=== PATIENT | male | born 1980 | race Caucasian/White ===

== ENCOUNTER 2024-10-07 17:31 | Observation (INO) | payer OTHER, SELFPAY ==
[2024-10-07 17:39] VITALS: BP 158/98; PULSE 70; RESP 14; TEMP 36.7; O2SAT 95; BMI 31.7
--- NOTE | 2024-10-07 17:40 | DI.RAD.S_ITS ---
PROCEDURE: XR CLAVICLE LT INDICATIONS: fall,scapula injury TECHNIQUE: 2 views of the clavicle were acquired. COMPARISON: None. FINDINGS: Bones: Displaced midshaft clavicular fracture with overriding of fracture fragments. Left posterior upper rib fractures are present. Soft tissues: No suspicious soft tissue calcifications. IMPRESSION: Displaced midshaft fracture of the left clavicle with overriding of fracture fragments. Mildly displaced left upper rib fractures. Approved by: Jay Alonso M.D. on 10/07/2024 at 18:34
--- NOTE | 2024-10-07 17:40 | DI.RAD.S_ITS ---
PROCEDURE: XR SCAPULA LT INDICATIONS: fall,scapula injury TECHNIQUE: 2 views of the scapula were acquired. COMPARISON: None. FINDINGS: Bones: Displaced midshaft left clavicular fracture. Mildly displaced left posterior 4th and 5th rib fractures. No pneumothorax. Scapular body is intact. No acromial or coracoid fracture is seen. Soft tissues: Overlying soft tissues appear normal. IMPRESSION: 1. No definite scapular fracture. 2. Displaced midshaft fracture of the left clavicle. 3. Mildly displaced left posterior 4th and 5th rib fractures. Approved by: Jay Alonso M.D. on 10/07/2024 at 18:35
--- NOTE | 2024-10-07 17:40 | DI.RAD.S_ITS ---
PROCEDURE: XR SHOULDER LT MIN 2V INDICATIONS: fall,scapula injury TECHNIQUE: 3 views of the shoulder were acquired. COMPARISON: None. FINDINGS: Bones: Displaced midshaft fracture of the left clavicle with overriding of fracture fragments. Mildly displaced left posterior 4th and 5th rib fractures. The scapula and proximal humerus appear to be intact. Soft tissues: No suspicious soft tissue calcifications. IMPRESSION: 1. Displaced left midshaft clavicular fracture. 2. Mildly displaced posterior 4th and 5th rib fractures. Approved by: Jay Alonso M.D. on 10/07/2024 at 18:36
--- NOTE | 2024-10-07 17:40 | DI.RAD.S_ITS ---
PROCEDURE: XR CHEST 1V INDICATIONS: fall,scapula injury TECHNIQUE: One view of the chest was acquired. COMPARISON: None. FINDINGS: Surgical changes and devices: None. Lungs and pleura: Lungs are clear. No pleural effusions or pneumothorax. Mediastinum: Mediastinal contours appear normal. Heart size is normal. Bones and chest wall: Mildly displaced left posterior rib fractures involving at least the 4th and 5th ribs. A displaced clavicular fracture is present. IMPRESSION: Mildly displaced left upper rib fractures and displaced left clavicular fracture. No pneumothorax is seen. Approved by: Jay Alonso M.D. on 10/07/2024 at 18:32
--- NOTE | 2024-10-07 18:18 | DI.CT.S_ITS ---
PROCEDURE: CT CERVICAL SPINE WO CON INDICATIONS: Multiple rib fractures TECHNIQUE: Noncontrast 3 mm thick sections acquired from the skull base to the T4 level. Sagittal and coronal reformats were then constructed. For radiation dose reduction, the following was used: automated exposure control, adjustment of mA and/or kV according to patient size. COMPARISON: None. FINDINGS: Image quality: Excellent. Bones: Displaced midshaft fracture of the left clavicle is partially included. Minimally displaced lateral and posterior left 1st rib segmental fracture. Minimally displaced 3rd and 4th rib fractures are partially included. Visualized superior ribs are intact. Multilevel disc space narrowing and degenerative endplate changes. Multilevel uncovertebral joint and facet hypertrophy. Soft tissues: Prevertebral soft tissues are normal in thickness. No paravertebral hematomas. No apical pneumothoraces. IMPRESSION: 1. No acute cervical spine fracture or traumatic subluxation. 2. Left clavicular and left 1st, 3rd, and 4th rib fractures are present. Approved by: Jay Alonso M.D. on 10/07/2024 at 19:33
--- NOTE | 2024-10-07 18:18 | DI.CT.S_ITS ---
PROCEDURE: CT UE LT WO CON INDICATIONS: Distal clavicle/scapular fracture TECHNIQUE: Noncontrast 0.75 mm thick sections acquired from the acromioclavicular joint to the inferior scapula, with coronal and sagittal reformatting. COMPARISON: [facility], CT, CT CHEST WO CON, 10/07/2024, 18:44. [facility], CT, CT CERVICAL SPINE WO CON, 10/07/2024, 18:44. [facility], CR, XR SHOULDER LT MIN 2V, 10/07/2024, 17:38. FINDINGS: Image quality: Excellent. Bones: Displaced midshaft fracture of the left clavicle with overriding of fracture fragments. Scapula and proximal humerus are intact. Multiple superior rib fractures are present. Soft tissues: Trace left hemothorax. No pneumothorax. Soft tissue edema/hemorrhage is seen adjacent to the fracture. IMPRESSION: 1. Displaced midshaft fracture of the left clavicle. 2. Multiple left-sided rib fractures including segmental fractures. Trace hemothorax. No pneumothorax. Approved by: Jay Alonso M.D. on 10/07/2024 at 20:02
--- NOTE | 2024-10-07 18:18 | DI.CT.S_ITS ---
PROCEDURE: CT CHEST WO CON INDICATIONS: multiple rib fx and clavicle fracture TECHNIQUE: Noncontrast 5 mm thick sections acquired from the pulmonary apices to the posterior costophrenic angles. 1 mm lung window, 5 mm thick coronal and sagittal and 7 mm axial MIP reformats were then acquired. For radiation dose reduction, the following was used: automated exposure control, adjustment of mA and/or kV according to patient size. COMPARISON: [facility], CR, XR SHOULDER LT MIN 2V, 10/07/2024, 17:38. FINDINGS: Image quality: Diagnostic. Lower Neck: No enlarged lymph nodes. Thyroid: No thyroid nodules which require sonographic follow up, per consensus guidelines. Axillae: No enlarged lymph nodes. Chest Wall: Unremarkable. Bones: Displaced midshaft fracture of the left clavicle with posterior displacement of the distal fracture fragment and overriding of fracture fragments. No scapular fracture or left proximal humeral fracture. Multiple left rib fractures. Minimally displaced posterior rib fractures involving the left 1st, likely 2nd, and 3rd through 10th fracture ribs. Anterolateral minimally displaced fractures are seen in the 1st through 5th and possibly 6th rib. No definite left-sided rib fracture. Remaining visualized osseous structures appear intact. Lungs and Pleura: Trace left posterior pleural effusion/hemothorax. No pneumothorax is seen. Left apical pleural-parenchymal scarring. No consolidation or suspicious nodules. Heart: Heart size is normal. No pericardial effusion. Thoracic Vessels: The aorta and pulmonary arteries demonstrate normal size. Mediastinum and Tonia: No enlarged lymph nodes. Esophagus: No wall thickening. No hiatal hernia. Upper Abdomen: Visualized upper abdomen solid organs and bowel loops appear normal. IMPRESSION: 1. Multiple mildly displaced and nondisplaced fractures of the left 1st through 10th ribs, including suspected segmental fractures at the 1st through 6th ribs. This places the patient at risk for flail chest and close clinical correlation is recommended. 2. Trace left hemothorax. No pneumothorax. 3. Displaced left clavicular shaft fracture. Approved by: Jay Alonso M.D. on 10/07/2024 at 19:39
--- NOTE | 2024-10-07 18:21 | ED_ITS ---
HPI - General Adult General Chief complaint: Extremity Injury, Upper Stated complaint: shoulder injury, pain, limited ROM Time Seen by Provider: 10/07/24 17:59 Source: patient Mode of arrival: EMS Limitations: no limitations History of Present Illness HPI narrative: Patient is a 44-year-old male. Not on anticoagulation who is here for evaluation of injuries that he sustained when he was skateboarding and landed on his left side/left shoulder. He did not hit his head. No loss of consciousness. No neck pain. Sustained an injury to his left shoulder and left upper back. He arrived by EMS. He did have a sling in place. Received pain medicine by EMS prior to arrival. Reports no elbow pain or wrist pain on the left. No right upper extremity discomfort. No abdominal pain. No chest pain. No lower extremity discomfort. Related Data Home Medications Medication Instructions Recorded Confirmed No Known Home Medications 10/07/24 10/07/24 Allergies Allergy/AdvReac Type Severity Reaction Status Date / Time No Known Drug Allergies Allergy Verified 10/07/24 20:06 Review of Systems Review of Systems ROS Unobtainable: All systems reviewed & are unremarkable except as noted in HPI and below Patient History Social History household members: spouse Smoking Status: Current every day smoker alcohol intake: current Smoking Status: Current every day smoker tobacco type: vaping Alcohol type: wine Exam Initial Vital Signs Initial Vital Signs: Vital Signs Temperature 98.0 F 10/07/24 17:39 Pulse Rate 70 10/07/24 17:39 Respiratory Rate 14 10/07/24 17:39 Blood Pressure 158/98 H 10/07/24 17:39 Pulse Oximetry 95 10/07/24 17:39 Oxygen Delivery Method Room Air 10/07/24 17:39 Const General: cooperative and No ill appearing HENMT Head: normal to inspection and normocephalic Face and sinus: normal facial exam Resp Effort & Inspection: normal respiratory effort Auscultation: clear to auscultation bilaterally Cardio Rate: regular rate Rhythm: regular rhythm Pulses: radial pulses present on the left GI Inspection: normal to inspection Back/Spine/Pelvis Cervical Spine: No cervical spinal tenderness Thoracic/Lumbar Spine: No thoracic spinal tenderness and No lumbar spinal tenderness Skin General: no rashes or lesions noted Neuro Cognition: normal cognition Speech: speech normal Sensory Exam: no sensory deficits noted Extrem Other: Right upper extremity, bilateral lower extremities and pelvis are unremarkable. Left upper extremity has no range of motion to his left shoulder secondary to pain. His left elbow left wrist unremarkable. Scores GCS [place] coma scale eye opening: Spontaneous [place] coma scale verbal response: Orientated [place] coma scale motor response: Obey commands [place] coma scale total score: 15 Course Orders Ordered: ED Orders 10/07/24 17:40 XR chest 1V Stat XR clavicle LT Stat XR scapula LT Stat XR shoulder LT min 2V Stat 10/07/24 18:18 CT UE LT wo con Stat CT cervical spine wo con Stat CT chest wo con Stat 10/07/24 19:58 Consult to General Surgery Stat 10/07/24 20:04 Consult to Orthopedic Surgery Stat Acetaminophen (Acetaminophen 325 Mg Tablet) 650 mg PO Q6H [facility] Last Admin: 10/07/24 21:48 Dose: 650 mg Documented By: NICOL Al Hydrox/Mg Hydrox/Simethicone (Mag Hydrox/Alum/Simeth 30 Ml Udc) 30 ml PO Q6HR PRN PRN Reason: Dyspepsia Celecoxib (Celecoxib 200 Mg Capsule) 200 mg PO BID [facility] Last Admin: 10/07/24 21:47 Dose: 200 mg Documented By: NICOL Docusate Sodium (Docusate 100 Mg Capsule) 100 mg PO BID [facility] Last Admin: 10/07/24 21:47 Dose: 100 mg Documented By: NICOL Hydromorphone HCl (Hydromorphone 0.5 Mg Inj) 0.5 mg IV Q2H PRN PRN Reason: Pain, Severe (7-10) Influenza Virus Vaccine (Influenza Vaccine Qiv 0.5 Ml Syringe) 0.5 ml IM .ONCE ONE Stop: 10/08/24 06:01 Lidocaine (Lidocaine 5% Patch) 1 each TOP DAILY [facility] Magnesium Hydroxide (Magnesium Hydroxide 30 Ml Udc) 30 ml PO DAILY [facility] Naloxone HCl (Naloxone 0.4 Mg/Ml Vial) 0.2 mg IV Q2MIN PRN PRN Reason: Opiate Reversal Ondansetron HCl (Ondansetron 4 Mg Odt) 4 mg PO Q8HR PRN PRN Reason: Nausea And Vomiting Oxycodone HCl (Oxycodone Ir 5 Mg Tablet) 5 mg PO Q3H PRN PRN Reason: Pain, Moderate (4-6) Oxycodone HCl (Oxycodone Ir 10 Mg Tablet) 10 mg PO Q3H PRN PRN Reason: Pain, Severe (7-10) Last Admin: 10/08/24 00:58 Dose: 10 mg Documented By: Admin: 10/07/24 21:47 Dose: 10 mg Documented By: JOSHK Tizanidine HCl (Tizanidine 4 Mg Tablet) 4 mg PO Q8HR [facility] Last Admin: 10/07/24 21:47 Dose: 4 mg Documented By: JOSHK Discontinued Medications Hydromorphone HCl (Hydromorphone 1 Mg Inj) 1 mg IV NOW ONE Stop: 10/07/24 18:22 Last Admin: 10/07/24 18:32 Dose: 1 mg Documented By: BJ Hydromorphone HCl (Hydromorphone 1 Mg Inj) 1 mg IV NOW ONE Stop: 10/07/24 19:55 Last Admin: 10/07/24 20:02 Dose: 1 mg Documented By: HNG Vital Signs Vital signs: Vital Signs - 8 hr 10/07/24 19:15 Pulse Rate 79 Blood Pressure 138/88 Pulse Oximetry 97 Oxygen Delivery Method Room Air Medical Decision Making Imaging Data Chest x-ray: Radiologist's Impression: PROCEDURE: XR CHEST 1V INDICATIONS: fall,scapula injury TECHNIQUE: One view of the chest was acquired. COMPARISON: None. FINDINGS: Surgical changes and devices: None. Lungs and pleura: Lungs are clear. No pleural effusions or pneumothorax. Mediastinum: Mediastinal contours appear normal. Heart size is normal. Bones and chest wall: Mildly displaced left posterior rib fractures involving at least the 4th and 5th ribs. A displaced clavicular fracture is present. IMPRESSION: Mildly displaced left upper rib fractures and displaced left clavicular fracture. No pneumothorax is seen. Clavicle x-ray: Radiologist's Impression: PROCEDURE: XR CLAVICLE LT INDICATIONS: fall,scapula injury TECHNIQUE: 2 views of the clavicle were acquired. COMPARISON: None. FINDINGS: Bones: Displaced midshaft clavicular fracture with overriding of fracture fragments. Left posterior upper rib fractures are present. Soft tissues: No suspicious soft tissue calcifications. IMPRESSION: Displaced midshaft fracture of the left clavicle with overriding of fracture fragments. Mildly displaced left upper rib fractures. Scapula x-ray: Radiologist's Impression: PROCEDURE: XR SCAPULA LT INDICATIONS: fall,scapula injury TECHNIQUE: 2 views of the scapula were acquired. COMPARISON: None. FINDINGS: Bones: Displaced midshaft left clavicular fracture. Mildly displaced left posterior 4th and 5th rib fractures. No pneumothorax. Scapular body is intact. No acromial or coracoid fracture is seen. Soft tissues: Overlying soft tissues appear normal. IMPRESSION: 1. No definite scapular fracture. 2. Displaced midshaft fracture of the left clavicle. 3. Mildly displaced left posterior 4th and 5th rib fractures. Shoulder x-ray: Radiologist's Impression: PROCEDURE: XR SHOULDER LT MIN 2V INDICATIONS: fall,scapula injury TECHNIQUE: 3 views of the shoulder were acquired. COMPARISON: None. FINDINGS: Bones: Displaced midshaft fracture of the left clavicle with overriding of fracture fragments. Mildly displaced left posterior 4th and 5th rib fractures. The scapula and proximal humerus appear to be intact. Soft tissues: No suspicious soft tissue calcifications. IMPRESSION: 1. Displaced left midshaft clavicular fracture. 2. Mildly displaced posterior 4th and 5th rib fractures. CT - cervical spine: Radiologist's Impression: PROCEDURE: CT CERVICAL SPINE WO CON INDICATIONS: Multiple rib fractures TECHNIQUE: Noncontrast 3 mm thick sections acquired from the skull base to the T4 level. Sagittal and coronal reformats were then constructed. For radiation dose reduction, the following was used: automated exposure control, adjustment of mA and/or kV according to patient size. COMPARISON: None. FINDINGS: Image quality: Excellent. Bones: Displaced midshaft fracture of the left clavicle is partially included. Minimally displaced lateral and posterior left 1st rib segmental fracture. Minimally displaced 3rd and 4th rib fractures are partially included. Visualized superior ribs are intact. Multilevel disc space narrowing and degenerative endplate changes. Multilevel uncovertebral joint and facet hypertrophy. Soft tissues: Prevertebral soft tissues are normal in thickness. No paravertebral hematomas. No apical pneumothoraces. IMPRESSION: 1. No acute cervical spine fracture or traumatic subluxation. 2. Left clavicular and left 1st, 3rd, and 4th rib fractures are present. CT scan - chest: Radiologist's Impression: PROCEDURE: CT CHEST WO CON INDICATIONS: multiple rib fx and clavicle fracture TECHNIQUE: Noncontrast 5 mm thick sections acquired from the pulmonary apices to the posterior costophrenic angles. 1 mm lung window, 5 mm thick coronal and sagittal and 7 mm axial MIP reformats were then acquired. For radiation dose reduction, the following was used: automated exposure control, adjustment of mA and/or kV according to patient size. COMPARISON: [facility], CR, XR SHOULDER LT MIN 2V, 10/07/2024, 17:38. FINDINGS: Image quality: Diagnostic. Lower Neck: No enlarged lymph nodes. Thyroid: No thyroid nodules which require sonographic follow up, per consensus guidelines. Axillae: No enlarged lymph nodes. Chest Wall: Unremarkable. Bones: Displaced midshaft fracture of the left clavicle with posterior displacement of the distal fracture fragment and overriding of fracture fragments. No scapular fracture or left proximal humeral fracture. Multiple left rib fractures. Minimally displaced posterior rib fractures involving the left 1st, likely 2nd, and 3rd through 10th fracture ribs. Anterolateral minimally displaced fractures are seen in the 1st through 5th and possibly 6th rib. No definite left-sided rib fracture. Remaining visualized osseous structures appear intact. Lungs and Pleura: Trace left posterior pleural effusion/hemothorax. No pneumothorax is seen. Left apical pleural-parenchymal scarring. No consolidation or suspicious nodules. Heart: Heart size is normal. No pericardial effusion. Thoracic Vessels: The aorta and pulmonary arteries demonstrate normal size. Mediastinum and Tonia: No enlarged lymph nodes. Esophagus: No wall thickening. No hiatal hernia. Upper Abdomen: Visualized upper abdomen solid organs and bowel loops appear normal. IMPRESSION: 1. Multiple mildly displaced and nondisplaced fractures of the left 1st through 10th ribs, including suspected segmental fractures at the 1st through 6th ribs. This places the patient at risk for flail chest and close clinical correlation is recommended. 2. Trace left hemothorax. No pneumothorax. 3. Displaced left clavicular shaft fracture. CT shoulder: Radiologist's Impression: ROCEDURE: CT UE LT WO CON INDICATIONS: Distal clavicle/scapular fracture TECHNIQUE: Noncontrast 0.75 mm thick sections acquired from the acromioclavicular joint to the inferior scapula, with coronal and sagittal reformatting. COMPARISON: [facility], CT, CT CHEST WO CON, 10/07/2024, 18:44. [facility], CT, CT CERVICAL SPINE WO CON, 10/07/2024, 18:44. [facility], CR, XR SHOULDER LT MIN 2V, 10/07/2024, 17:38. FINDINGS: Image quality: Excellent. Bones: Displaced midshaft fracture of the left clavicle with overriding of fracture fragments. Scapula and proximal humerus are intact. Multiple superior rib fractures are present. Soft tissues: Trace left hemothorax. No pneumothorax. Soft tissue edema/hemorrhage is seen adjacent to the fracture. IMPRESSION: 1. Displaced midshaft fracture of the left clavicle. 2. Multiple left-sided rib fractures including segmental fractures. Trace hemothorax. No pneumothorax. MDM Narrative Medical decision making narrative: Patient was multiple rib fractures of the left with a small hemothorax. He was not hypoxic. Lungs are clear. Will hold on chest tube for now. Cervical spine CT is unremarkable. He did not hit his head it was not on anticoagulation and has no loss of consciousness. Has a GCS of 15 alert and oriented x3. We will hold on a head CT for now. Has a left clavicular fracture. I did discuss the case with Dr. Nagel on-call for General surgery who will admit for observation. Discussed the case with Dr. Conrad on-call for Orthopedic surgery who will evaluate the patient as an inpatient most likely tomorrow. Discussed the need for admission with the patient. He expressed understanding agreement with plan. Discharge Plan Departure Patient Disposition: Admitted as Observation Clinical Impression: Multiple rib fractures involving first rib, Hemothorax on left Fracture, clavicle Qualifiers: Encounter type: initial encounter Laterality: left Admit Date/Time: 10/07/24 20:05 Admit Provider: Jass Nagel
[2024-10-07] MEDS: HYDROMORPHONE 1 MG INJ IV ×2 (18:32→20:02)
[2024-10-07 19:15] VITALS: BP 138/88; PULSE 79; O2SAT 97
--- NOTE | 2024-10-07 20:31 | PM.HP.1 ---
History of Present Illness History of Present Illness Date Patient Seen: 10/07/24 Time Patient Seen: 20:31 Chief complaint: shoulder injury, pain, limited ROM Narrative: This is a 44-year-old white male who fell off the curb while skateboarding earlier today. He did not strike his head. He did not have loss of consciousness. He struck his left shoulder and chest wall and sustained a clavicle fracture as well as 1st through 10th rib fractures. He has a small hemothorax without associated pneumothorax. He is otherwise healthy. He has had a previous right clavicle fracture and previous rib fractures years prior. [facility] Social History Smoking Status: Current every day smoker Meds Home Medications and Allergies Allergies Allergy/AdvReac Type Severity Reaction Status Date / Time No Known Drug Allergies Allergy Verified 10/07/24 20:06 Review of Systems Review of Systems ROS: Yes All systems reviewed with the patient and are negative except as otherwise documented Exam Vital Signs (past 8 hours): - 10/07/24 17:39 10/07/24 19:15 Temperature 98.0 F Pulse Rate 70 79 Respiratory Rate 14 Blood Pressure 158/98 H 138/88 Pulse Oximetry 95 97 Oxygen Delivery Method Room Air Room Air Oxygen Delivery Method Room Air Const General: cooperative, healthy appearing, comfortable, well developed and well groomed Nutritional Appearance: average body habitus and well nourished Orientation: alert, awake and oriented x3 HENMT Head: normal to inspection, normocephalic, atraumatic, No abrasion, No Olvera's sign, No contusion, No hematoma and No laceration Eyes General: appearance normal, both eyes and all related structures Alignment and Position: alignment normal Periorbital: periorbital findings normal Pupils: PERRL Neck Neck: normal visual inspection, full ROM, trachea midline, No anterior neck swelling, No midline deformity, No tender and No tracheal deviation Chest Chest: localized rib tenderness with anteroposterior compression Resp Effort & Inspection: normal respiratory effort and able to speak in complete sentences Auscultation: clear to auscultation bilaterally Cardio Rate: regular rate Rhythm: regular rhythm GI Inspection: no abdominal wall ecchymosis and no edema Palpation: soft, No guarding and No tender Back/Spine/Pelvis Back: normal to inspection Cervical Spine: normal cervical lordosis Thoracic/Lumbar Spine: thoracic and lumbar spine normal to inspection Skin Trauma: no lacerations or abrasions Wounds: no wounds Neuro Cranial Nerves: CN's II-XI intact bilaterally Cognition: normal cognition Speech: speech normal Gait: normal gait Motor: muscle tone normal throughout Sensory Exam: no sensory deficits noted Extrem Right upper extremity: normal to inspection Left upper extremity: ROM limited Right lower extremity: normal to inspection Left lower extremity: normal to inspection Psych Appearance: grossly normal and well kempt Mental Status: mental status grossly normal Speech and Movement: speech and movement normal Mood: congruent mood Affect: normal affect Attitude: cooperative Thought Process: normal Thought Content: normal Judgment: judgment good Objective Imaging CT scan - chest: My impression: CT scan chest independently reviewed by me demonstrates 1st through 10 rib fractures on the left as well as a comminuted left clavicle fracture. Small hemothorax without associated pneumothorax. Assessment & Plan Assessment and plan (1) Hemothorax on left: Status: Acute (2) Fracture, clavicle: Qualifiers: Encounter type: initial encounter Laterality: left Status: Acute (3) Multiple rib fractures involving first rib: Status: Acute Assessment & Plan narrative: 1. Orthopedic surgery to evaluate the clavicle tomorrow 2. Discussed with the patient the importance of incentive spirometry to recruit lung volume. Explained to the patient that a hemothorax we will take away lung volume and if it expands he will never get that lung volume back. We discussed goals of pain control is for him to be able to pull a good volume on incentive spirometry and regain function. We will keep him overnight with as needed IV medications. If he is able to tolerate oral medications and oral as needed, and the orthopedic consultation is resolved tomorrow, he could feasibly be discharged tomorrow. Time-Based Coding :: [TOTAL MINUTES] spent with patient and on the chart (including review of chart, obtaining history, exam, reviewing outside data, placing orders, documenting exam and treatment plan, and counseling patient) on [DATE]. PROFEE Charge Codes Initial inpatient/observation care: 73550
[2024-10-07 20:52] VITALS: BP 147/84; PULSE 76; RESP 16; O2SAT 97
[2024-10-07 21:22] VITALS: BMI 22.5
[2024-10-07] MEDS: TIZANIDINE 4 MG TABLET PO (21:47)
[2024-10-07] MEDS: CELECOXIB 200 MG CAPSULE PO (21:47)
[2024-10-07] MEDS: OXYCODONE IR 10 MG TABLET PO (21:47)
[2024-10-07] MEDS: DOCUSATE 100 MG CAPSULE PO (21:47)
[2024-10-07] MEDS: ACETAMINOPHEN 325 MG TABLET 650 MG PO (21:48)
[2024-10-07 22:09] VITALS: BP 138/91; PULSE 66; RESP 18; TEMP 36.6; O2SAT 94
[2024-10-08 00:23] VITALS: O2SAT 95
[2024-10-08] MEDS: OXYCODONE IR 10 MG TABLET PO ×3 (00:58→15:21)
[2024-10-08] MEDS: TIZANIDINE 4 MG TABLET PO ×2 (05:05→13:34)
[2024-10-08 06:00] VITALS: BP 127/84; PULSE 86; RESP 19; TEMP 36.6; O2SAT 97
--- NOTE | 2024-10-08 06:00 | DI.RAD.S_ITS ---
PROCEDURE: XR CHEST 2V INDICATIONS: re-assess hemothorax TECHNIQUE: 2 views of the chest were acquired. COMPARISON: [facility], , XR CHEST 1V, 10/07/2024, 17:38. FINDINGS: Surgical changes and devices: None. Lungs and pleura: Small blunting of the left costophrenic angle, consistent with history of hemothorax. Left apical pleural thickening. No definite pneumothorax is seen. Mediastinum: Mediastinal contours are normal. Heart size is normal. Bones and chest wall: Redemonstration of left rib fractures. Clavicle fracture is redemonstrated. No suspicious bony abnormalities. Soft tissues appear unremarkable. IMPRESSION: Blunting of the left costophrenic angle likely representing small hemothorax. Redemonstration of rib and clavicle fractures. No definite pneumothorax is seen. Dictated by: Betito Schumacher M.D. on 10/08/2024 at 11:24 Approved by: Betito Schumacher M.D. on 10/08/2024 at 11:26
[2024-10-08 07:55] VITALS: O2SAT 97
[2024-10-08 07:58] VITALS: BP 125/85; PULSE 56; RESP 14; TEMP 36.3; O2SAT 98
[2024-10-08] MEDS: ACETAMINOPHEN 325 MG TABLET 650 MG PO ×2 (08:17→13:34)
[2024-10-08] MEDS: LIDOCAINE 5% PATCH 1 EACH TOP (08:17)
[2024-10-08] MEDS: MAGNESIUM HYDROXIDE 30 ML UDC PO (08:17)
[2024-10-08] MEDS: CELECOXIB 200 MG CAPSULE PO (08:19)
[2024-10-08] MEDS: OXYCODONE IR 5 MG TABLET PO ×2 (08:19→11:35)
[2024-10-08] MEDS: DOCUSATE 100 MG CAPSULE PO (08:19)
[2024-10-08 10:57] VITALS: O2SAT 97
[2024-10-08 11:00] VITALS: BP 137/90; PULSE 67; RESP 16; TEMP 36.9; O2SAT 97
--- NOTE | 2024-10-08 12:39 | CM.DANOTE ---
DCP Assessment Note: Pt is a 44yo male, resident of [place], is admitted for hemothorax and clavicle injury following a skateboarding accident. Pt lives in a house with his and two children. Pt does not have a current PCP at this time and insurance is [employer]. Reviewed chart and team rounds for pt's medical status and initial discharge needs. DCP met w/patient at bedside; introduced self and role. Patient was found in bed, alert and oriented, cooperative with assessment. Pt confirmed living situation and good support in and family. Pt expressed preference in discharging home when medically cleared. Pt declined need for home health or other community referrals at this time. Pt requested assistance with priority boarding pass and confirmed he is not able to get ferry reservation due to unknown discharge time. Pt confirmed email address as: [email or web address]. DCP will complete form when dc order for today confirmed. PT evaluation pending. Plan: Anticipating dc home with spouse when medically cleared. CM team will follow closely for coordination of discharge plans. 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 No History Provided By Patient,Medical Record Has Patient been admitted in last 30 No days? Prior Living Arrangements House Comment [place] Household Members spouse,children Comment Son (16yo), Daughter (10yo) Type of transporation used prior to Drives own vehicle admit Independent with ADL's Yes Is patient alert and oriented? Yes Caregiver for Another No Barriers to Discharge No Discharge Plan Home Whiteboard Updated in Patient Room with Yes name and ext. # of Roller Printer Comment [phone] Review Status In Process Please Provide Date Initial DC 10/08/24 Assessment Was Performed Next Review Type Continued Stay Review
--- NOTE | 2024-10-08 13:10 | PT.IIE ---
Current Diagnoses Hemothorax (10/07/24) Multiple fractures of ribs, unspecified side, initial encounter for closed fracture (10/07/24) Fracture of unspecified part of unspecified clavicle, initial encounter for closed fracture (10/07/24) Physical Therapy Inpatient Evaluation/Re-Eval M1 PT/OT-IP Prior Functional Status Start: 10/08/24 12:52 Freq: NEEDED Status: Active Protocol: Document 10/08/24 12:53 AMB (Rec: 10/08/24 13:09 AMB [id number]) Medical Review Prior Functional Status Communication Independent Mobility and Gait Independent Activities of Daily Living and IADL's Independent Social History Household Members spouse,children Living Arrangements House Number of Stairs To Enter/Railing? 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 M2 PT-IP Current Condition Start: 10/08/24 12:52 Freq: NEEDED Status: Active Protocol: Document 10/08/24 12:53 AMB (Rec: 10/08/24 13:09 AMB [id number]) Physical Therapy Current Condition Current Condition Evaluation Date 10/08/24 Treatment Diagnosis clavicular and rib fractures s /p fall Onset Date 10/08/24 M3 PT-IP Subjective Start: 10/08/24 12:52 Freq: NEEDED Status: Active Protocol: Document 10/08/24 12:53 AMB (Rec: 10/08/24 13:09 AMB [id number]) Subjective Physical Therapy Visit Type Type Initial Evaluation Visit Start Time 12:30 Visit Stop Time 12:45 Physical Therapy Visit Comments Patient Comments Pt is ready and willing to get up, just got pain meds, so pain is under control Therapy Pain Assessment Pain When Pain Assessed At Rest Pain Present Pain Present Pain Reported M4 PT-IP Mobility and Gait Start: 10/08/24 12:52 Freq: NEEDED Status: Active Protocol: Document 10/08/24 12:53 AMB (Rec: 10/08/24 13:09 AMB [id number]) PT-Bed Mobility Assessment Rolling Type of Rolling Roll to Right Level of Assist Independent Supine to Sit Supine to Sit Independent Sit to Supine Sit to Supine Independent PT-Transfer Assessment Sit to and From Stand Sit to and from Stand Independent Equipment Transfer Assistive Device None Transfers Transfer Destination Bed,Chair Transfer Technique Stand Step Pivot Transfer Ability Level of Assist Independent Comments Mobility Comments Pt independently performing bed mobility and transfers Gait Assessment Gait Gait Assistance Required: Independent Distance (Feet) 300 Assistive Devices Assistive Device None Gait Deviations General Gait Pattern Within Normal Limits Comments Gait Comments Pt is independent with gait over smooth terrain, states feels good to walk around. Very active prior to fall. Stair Climbing Assessment Evaluation Level of Assist On Stairs Independent Devices Stair Climbing Assistive Devices None Technique/Endurance Stair Climbing Direction Ascend and Descend Stair Climbing Technique Step to Step Number of Steps Climbed 4 Query Text: Comments Stair Climbing Comments Pt encouraged to take his time on stairs, but was able to practice stairs without railing. PT-Balance Assessment Balance Tests Tandem Standing 30 seconds M5 PT-IP Objective Assessments Start: 10/08/24 12:52 Freq: NEEDED Status: Active Protocol: Document 10/08/24 12:53 AMB (Rec: 10/08/24 13:09 AMB [id number]) Orientation Orientation/Cognition Level of Alertness Alert Gross Range of Motion Upper Extremity ROM Assessment Left Impaired Impairments in sling s/p clavicular fracture Lower Extremity ROM Assessment Within Functional Limits Strength Upper Extremity Strength Assessment Left Impaired Lower Extremity Strength Assessment Within Functional Limits M6 PT-IP Treatment Start: 10/08/24 12:52 Freq: NEEDED Status: Active Protocol: Document 10/08/24 12:53 AMB (Rec: 10/08/24 13:09 AMB [id number]) Physical Therapy Treatment Education Education Provided Safety M7 PT-IP Assessment and Plan Start: 10/08/24 12:52 Freq: NEEDED Status: Active Protocol: Document 10/08/24 12:53 AMB (Rec: 10/08/24 13:09 AMB [id number]) PT Summary Assessment and Plan Potential Rehabilitation Potential Excellent Status of Condition at Evaluation Stable Summary Impairments Pain,Activity Tolerance Assessment Summary Jostin sustained a L clavicular and multiple L rib fractures after falling while skateboarding. 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 Upon PT evaluation he is independent with transfers, gait, and stairs. Encouraged patient to be careful upon getting up as he is on pain medication that is new to him, and encouraged him to be very careful to avoid falling. Overall he was able to navigate the hospital environment independently and should be able to discharge home when medically stable. Goals Bed Mobility Goal Independent Transfer Goal Independent Gait Goal Independent Days to Meet Goals 1 Frequency of Treatment Frequency Of Treatment Discharge Treatment Plan Physical Therapy Treatment Plan Gait Training,Balance Retraining Recommendations To Nursing Amount of Assist Needed Independent Discharge Recommendations PT Discharge Recommendations Home Transportation Needs at Discharge Private Vehicle
--- NOTE | 2024-10-08 13:15 | PM.DS.1 ---
History of Present Illness History of Present Illness Chief complaint: shoulder injury, pain, limited ROM Narrative: This is a 44-year-old white male who fell off the curb while skateboarding earlier today. He did not strike his head. He did not have loss of consciousness. He struck his left shoulder and chest wall and sustained a clavicle fracture as well as 1st through 10th rib fractures. He has a small hemothorax without associated pneumothorax. He is otherwise healthy. He has had a previous right clavicle fracture and previous rib fractures years prior. Discharge Providers Provider Date of admission: 10/07/24 20:05 Discharge Date: 10/08/24 Primary care physician: Doctor Abram MD Consults: 10/07/24 19:58 Consult to General Surgery Stat Comment: Consulting Provider: Jass Nagel Reason for consultation: multiple rib fractures Has provider been notified: Yes 10/07/24 20:04 Consult to Orthopedic Surgery Stat Comment: Consulting Provider: Christo Conrad Reason for consultation: Clavicle fracture Has provider been notified: Yes 10/07/24 20:27 Consult to Physical Therapy Evaluate & Treat Comment: Physician Instructions: Evaluate and Treat Consult to Physician Routine Comment: Consulting Provider: Christo Conrad Reason for consultation: clavicle fracture, already called by the ER Has provider been notified: Yes Discharge provider: Jass Nagel MD Summary Hospital Course Discharge Diagnosis: 1. Multiple left rib fracture with hemothorax 2. Left clavicle fracture Hospital Course: Patient was admitted for pain control and monitoring following a fall from his skateboard resulting multiple left rib fractures, hemothorax left clavicle fracture. Patient only required IV Dilaudid in the ER, has been tolerating oral medications. Orthopedic surgeries not have plans for inpatient treatment of the clavicle fracture. Status at Discharge Cognitive/behavioral status at discharge: oriented Functional status at discharge: independent ambulation Overall status at discharge: patient is back to baseline Time Spent with Patient Time spent: Less than 30 minutes Exam Vital Signs (past 8 hours): - 10/08/24 06:00 10/08/24 07:55 10/08/24 07:55 Temperature 97.8 F Pulse Rate 86 Respiratory Rate 19 Blood Pressure 127/84 Pulse Oximetry 97 97 Oxygen Delivery Method Room Air Room Air Oxygen Flow Rate 0 0 10/08/24 07:58 10/08/24 10:57 10/08/24 11:00 Temperature 97.4 F L 98.5 F Pulse Rate 56 L 67 Respiratory Rate 14 16 Blood Pressure 125/85 137/90 Pulse Oximetry 98 97 97 Oxygen Delivery Method Room Air Oxygen Flow Rate 0 0 0 Oxygen Delivery Method Room Air Oxygen Flow Rate 0 Narrative Exam Narrative: Gen: NAD, sitting comfortably in bed, appears well HEENT: Sclera are anicteric, head is normocephalic and atraumatic, trachea is midline. CV: RRR, no JVD Resp: clear to auscultation bilaterally, equal chest wall movement bilaterally Abd: soft, nontender, normoactive bowel sounds Ext: no edema, full range of motion x3, left arm in sling Neuro: Cranial nerves II-XII grossly intact, no focal deficits Skin: No erythema or ecchymosis PFSH Social History household members: spouse and children Smoking Status: Current every day smoker alcohol intake: current Discharge Assessment & Plan Assessment and Plan Assessment: 1. Multiple left rib fractures, 2. Hemothorax 3. clavicle fracture Plan of Treatment: Sling. Outpatient follow-up with Orthopedic surgery Pain management with oral medications Discharge Plan Discharge Plan Patient Disposition: Home Discharge orders & Medications Prescriptions: New oxycodone 5 mg Tablet 5 mg PO Q3H PRN (Reason: Pain, Moderate (4-6)) 7 Days Qty: 20 0RF acetaminophen 325 mg Tablet 650 mg PO Q6H 30 Days Qty: 240 2RF celecoxib [Celebrex] 200 mg Capsule 200 mg PO BID 30 Days Qty: 60 2RF tizanidine 4 mg Tablet 4 mg PO Q8HR 30 Days Qty: 90 2RF lidocaine 5 % Adhesive Patch,Medicated 1 patch topical BEDTIME 30 Days Qty: 30 2RF No Action No Known Home Medications Follow up/Referrals: Miscellaneous,DoctorMD [Primary Care Provider] - Christo Conrad MD [Physician] - Diet/Activity/Treatments Diet: Regular Activity: sling left arm, follow-up with Dr. Conrad for further activity. Cold/Heat Therapy: May apply ice or heat to left chest/shoulder as needed, 20 minutes on/off Other treatments: Use the incentive spirometer 10 x per hour while awake Skin/Wound/Dressing Care Report to your healthcare provider any signs of infection, such as:: chills, fever, night sweats, increased pain, unusual drainage and unusual redness Visit Report/Discharge Packet Instructions: DI for Prescription Opioid Use Stand Alone Forms: Patient Portal/API, Stroke Signs & Symptoms Discharge Data Primary Care Provider: Abram,Doctor Attending Provider: Jass Nagel Admit Date/Time: 10/07/24 20:05 Quality VTE Deep Vein Thrombosis/Pulmonary Embolism Present on Admission: No IH PROFEE Charge Codes Discharge inpatient/observation: [id number]
--- NOTE | 2024-10-08 15:35 | PC.NURSE ---
Discharge Note Patient A&O, VSS, RA. Patient medication for pain/discomfort prior to discharge. Discharge packet reviewed with patient, all questions/concerns addressed. Patient able to dress self and pack all belongings. Patient accompanied to POV.
== END 2024-10-08 15:30 | disposition home or self-care (01) ==
LOC: ED 20:06 → AC 20:06
PROVIDERS: Admitting Provider Surgery; Emergency Provider Emergency Medicine; Visit Provider Surgery
DX: S42.002A Fracture of unspecified part of left clavicle, initial encounter for closed fracture (principal); S22.42XA Multiple fractures of ribs, left side, initial encounter for closed fracture; S27.2XXA Traumatic hemopneumothorax, initial encounter; V00.131A Fall from skateboard, initial encounter
CPT/HCPCS: 71045; 71046; 71250; 72125; 73000; 73010; 73030; 73200; 96374; 96376; 97161; 99223; 99238; 99284; 99285; G0378; J1171